=== PATIENT | male | born 1950 | race Caucasian/White ===

== ENCOUNTER → 2020-08-17 14:52 | Outpatient (CLI) | payer MEDICARE, OTHER, SELFPAY ==
--- NOTE | ~2020-08-17 | XR_ITS ---
XR lumbar spine min 4V DATE: 08/17/2020 15:21 INDICATION: Back pain TECHNIQUE: AP, lateral, bilateral oblique and coned lateral lumbosacral views COMPARISON: 11/25/2011 lumbar spine FINDINGS: There is a transitional lumbosacral (S1) vertebra with sacralization and pseudarthrosis on the right, lumbarization on the left. There is mild levoscoliosis of the lumbar spine. There is severe degenerative disc disease from L2-3 through L5-S1. There is degenerative change at the apophyseal joints but no spondylolisthesis. No fracture or bone destruction is evident. The lumbar pedicles are intact. The sacroiliac joints are normal. Status post left total hip arthroplasty. Plate and screws above roof of left acetabulum. Numerous faceted calcified gallstones. 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 IMPRESSION: Severe degenerative disc disease from L2-3 through L5-S1, considera antwan advanced since 11/25/2011 Transitional first sacral vertebra with sacralization pseudoarthrosis on the ri ght Status post left total hip arthroplasty Plate and screws above roof of acetabulum
--- NOTE | ~2020-08-17 | XR_ITS ---
XR thoracic spine 3V DATE: 08/17/2020 15:21 INDICATION: Back pain TECHNIQUE: AP, lateral, swimmer views COMPARISON: None FINDINGS: There is anterior surgical fusion at C5-6. There is prominent degenerative disc disease at C4-5 and C6-7. There is degenerative spurring of the thoracic spine. No fracture or bone destruction is evident. The thoracic pedicles are intact. No paraspinal soft tissue thickening. Diffuse osteopenia. Numerous faceted calcified gallstones. Old pulmonary granulomatous disease including calcified hilar and subcarinal nodes. IMPRESSION: Status post anterior cervical spine fusion at C5-6 Prominent degenerative disease at C4-5 and C6-7 Degenerative spurring of the thoracic spine Osteopenia Cholelithiasis Reviewed, dictated and finalized at location A.
== END ==
PROVIDERS: PCP Family Medicine; Visit Provider Family Medicine
DX: T14.90XA Injury, unspecified, initial encounter (principal); M51.36 Other intervertebral disc degeneration, lumbar region; Z98.1 Arthrodesis status; M50.321 Other cervical disc degeneration at C4-C5 level; M50.323 Other cervical disc degeneration at C6-C7 level
CPT/HCPCS: 72072; 72110

== ENCOUNTER 2020-12-17 10:02 | Outpatient (CLI) | payer MEDICARE, OTHER, SELFPAY ==
--- NOTE | 2020-12-17 10:15 | ECG_ITS ---
Measurements Intervals [place] Rate: 56 P: 42 FL: 150 QRS: 54 QRSD: 92 T: 10 QT: 398 QTc: 385 Interpretive Statements SINUS BRADYCARDIA WITH SINUS ARRHYTHMIA BORDERLINE T WAVE ABNORMALITY- INFERIOR LEADS BORDERLINE ECG Electronically Signed On 12-17-2020 11:29:26 CDT by Donny Jules D.O.
== END 2020-12-17 10:03 | disposition home or self-care (01) ==
PROVIDERS: PCP Family Medicine; Visit Provider Family Medicine
DX: I10 Essential (primary) hypertension (principal); R94.31 Abnormal electrocardiogram [ECG] [EKG]
CPT/HCPCS: 93005

== ENCOUNTER → 2020-12-27 13:41 | Outpatient (CLI) | payer MEDICARE, OTHER, SELFPAY ==
--- NOTE | ~2020-12-27 | US_ITS ---
EXAMINATION: US renal BI DATE: 12/27/2020 14:00 INDICATION: Disorder of kidney and ureter, unspecified. TECHNIQUE: Multiple ultrasound grayscale images of the kidneys were obtained. COMPARISON: Ultrasound 02/22/2014 FINDINGS: The right kidney measures 9.8 x 5.4 x 4.8 cm. The left kidney measures 10.2 x 5.3 x 5.4 cm. The kidne ys demonstrate normal parenchymal echogenicity. There is a 1.8 cm hypoechoic mass in right kidney. Th ere is a 5.7 cm cyst in left kidney. There is a 2.0 cm mass in left kidney that is at least partially cystic. There is no hydronephrosis. The bladder is not well distended. IMPRESSION: 1. Normal kidney sizes. No hydronephrosis. 2. Bilateral kidney masses, which may be benign cysts or less likely neoplasms. Abdomen CT without an d with contrast is recommended. Reviewed, dictated and finalized at location A. IMPRESSION: 1. Normal kidney sizes. No hydronephrosis. 2. Bilateral kidney masses, which may be benign cysts or less likely neoplasms. Abdomen CT without and with contrast is recommended.
== END ==
PROVIDERS: PCP Family Medicine; Visit Provider Family Medicine
DX: N28.9 Disorder of kidney and ureter, unspecified (principal)
CPT/HCPCS: 76775

== ENCOUNTER 2021-01-04 12:22 | Outpatient (CLI) | payer MEDICARE, OTHER, SELFPAY ==
--- NOTE | ~2021-01-04 | CT_ITS ---
EXAMINATION: CT abdomen wo/w con DATE: 01/04/2021 13:03 INDICATION: Bilateral kidney masses. TECHNIQUE: Computed tomography (CT) of the abdomen was performed without and with 100 mL Omnipaque 35 0 intravenous contrast. Automated exposure control and iterative reconstruction technique were employ ed. The dose-length product was 826.81 mGy-cm. COMPARISON: Ultrasound 12/27/2020 FINDINGS: The visualized portions of the lung bases demonstrate mild atelectasis. A calcified left juany ng nodule and calcified paraesophageal lymph node are consistent with old granulomatous disease. No p leural effusion. The heart size is normal. There are coronary artery calcifications. No pericardial e ffusion. The liver is normal. There are gallstones in the gallbladder, which is normal in size. Calci fications in the spleen are consistent with old granulomatous disease. The pancreas and adrenal gland s are normal. There are simple cysts in the kidneys measuring up to 6.1 cm on the left. There is a 12 mm hemorrhagic cyst in right kidney. There are no dilated loops of bowel. The appendix is normal. Th ere are no pathologically enlarged lymph nodes. There is no free intraperitoneal fluid. There is tawanda re thoracic and lumbar spondylosis. There is a chronic compression fracture of L1. Lumbar levoscolios is is noted. IMPRESSION: 1. Benign cysts in the kidneys. Reviewed, dictated and finalized at location A.
== END 2021-01-04 12:23 | disposition home or self-care (01) ==
LOC: ANHIMG 12:25
PROVIDERS: PCP Family Medicine; Visit Provider Family Medicine
DX: N28.89 Other specified disorders of kidney and ureter (principal); N28.1 Cyst of kidney, acquired
CPT/HCPCS: 74170; Q9967

== ENCOUNTER → 2022-02-17 12:34 | Outpatient (CLI) | payer MEDICARE, SELFPAY ==
--- NOTE | ~2022-02-17 | XR_ITS ---
EXAM: XR wrist LT min 3V, XR forearm LT 2V DATE: 02/17/2022 12:47 HISTORY: M25.539 - Pain in unspecified wrist . COMPARISON: None available. FINDINGS: Screw and plate fixation of the distal left ulna, without hardware-related complication. No rmal mineralization. No fracture or dislocation. No lytic or blastic lesion. Scattered degenerative c hange in the joints of the wrist, moderate at the triscaphe joint. No erosion or periosteal change. S oft tissues within normal limits. IMPRESSION: No acute osseous finding in the left wrist or forearm.. Reviewed, dictated and finalized at location K. OR UI UX DESIGNER IMPRESSION: No acute osseous finding in the left wrist or forearm..
== END ==
PROVIDERS: PCP Family Medicine; Visit Provider Physician Assistant Medical
DX: M79.632 Pain in left forearm (principal); M25.539 Pain in unspecified wrist
CPT/HCPCS: 73090; 73110

== ENCOUNTER → 2022-09-09 09:31 | Outpatient (CLI) | payer MEDICARE, SELFPAY ==
--- NOTE | ~2022-09-09 | XR_ITS ---
AP view of the pelvis and AP and lateral views of the left hip Clinical history: Pain Findings: No acute fracture or dislocation is seen. There is left hip arthroplasty hardware present, with additional hardware at the left supra-acetabular region. There is mild heterotopic ossification at the left hip. Right hip joint space is preserved. Soft tissues are unremarkable. Impression: No acute abnormality evident. Left hip arthroplasty with additional left supra-acetabular hardware. Mild heterotopic ossification. Reviewed, dictated and finalized at location . Impression: No acute abnormality evident. Left hip arthroplasty with additional left supra-acetabular hardware. Mild hete rotopic ossification.
== END ==
PROVIDERS: PCP Family Medicine; Visit Provider Physician Assistant
DX: M25.552 Pain in left hip (principal)
CPT/HCPCS: 73502

== ENCOUNTER 2024-06-08 11:25 | Outpatient (CLI) | payer MEDICARE, SELFPAY ==
--- NOTE | ~2024-06-08 | XR_ITS ---
XR_[id number]_CR Ordering provider: Ivelisse Kathleen PA-C History: . M54.2 - Cervicalgia . Comparison: None. FINDINGS: VERTEBRAL BODIES: Normal height and alignment. No visible fracture or subluxation. The dens is intact . Postoperative changes at the level of C5-C6. DISK SPACES: Narrowing of the disc C4-C5, C5-C6 and C6-C7. Multilevel facet joint disease. Multilevel uncovertebral joint osteoarthritic changes. PARASPINOUS SOFT TISSUES: No prevertebral soft tissue swelling. IMPRESSION: No acute osseous abnormality cervical spine. Multilevel degenerative disc disease. Reviewed, dictated and finalized at location A.
--- NOTE | ~2024-06-08 | XR_ITS ---
3 VIEWS THORACIC SPINE Ordering provider: Ivelisse Kathleen PA-C History: . M54.2 - Cervicalgia; CHRONIC NECK AND BACK PAIN . Comparison: None. FINDINGS: VERTEBRAL BODIES: Normal height and alignment. No visible fracture or subluxation. Degenerative johnson es of the spine. Postoperative changes in the lower cervical area. DISK SPACES: Multilevel degenerative disc disease in the upper, mid and lower thoracic area. SOFT TISSUES: Normal. Cholelithiasis. IMPRESSION: No acute osseous abnormality of the thoracic spine. Multilevel degenerative disc disease. Cholelithiasis. Reviewed, dictated and finalized at location A.
== END 2024-06-08 11:26 | disposition home or self-care (01) ==
LOC: MICIMG 11:27
PROVIDERS: PCP Family Medicine; Visit Provider Student in an Organized Health Care Education/Training Program
DX: M50.30 Other cervical disc degeneration, unspecified cervical region (principal); K80.20 Calculus of gallbladder without cholecystitis without obstruction; M51.34 Other intervertebral disc degeneration, thoracic region
CPT/HCPCS: 72040; 72070

== ENCOUNTER 2024-07-29 09:15 | Outpatient (RCR) | payer MEDICARE, SELFPAY ==
--- NOTE | 2024-07-04 11:01 | OPREHPOC ---
Outpatient Therapy Plan of Care This is a Multidisciplinary Plan of Care that may contain components documented by all disciplines (PT, OT, and ST.) PT Problem 1 PT Problem #1 Knowledge Deficit PT Goal 1 Goal / Goal Update *independent with HEP Target Visit 8 PT Problem 2 PT Problem #2 Impaired Flexibility PT Goal 1 Goal / Goal Update *increase cervical rotation, to improve driving, home and self care activities: 1* rotation R 65' 2* rotation L 70' 3* no pain increase with cervical rotation to R 4* no pain increase with L shoulder IR motion Target Visit 8 PT Problem 3 PT Problem #3 Impaired Strength PT Goal 1 Goal / Goal Update * increase strength of cervical-thoracic complex to 4+/5, to improve position and posture of shoulder Target Visit 8
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
--- NOTE | 2024-08-12 13:15 | PTOPDC ---
Assessment and note entered by Rick Elam, PT Evaluation Information Assessment Status Discharge - Pt Not Present ICD-10 Condition Codes (PT) Cervicalgia M54.2,Pain in Thoracic Spine M54.6 Onset May 2024 Subjective Information Patient was contacted requesting to change his appointment due to an ill clinician. Patient reported that he was doing well overall and denied any recurring symptoms. Reports that if it okay with therapist he would like to be discharged. Assessment PT Clinical Summary Patient to be discharged at this time per patient request. Patient reports meeting all personal therapy goals at this time. Plan of Care PT Services Indicated Yes
== END 2024-08-12 13:57 | disposition home or self-care (01) ==
LOC: ANHGOSHPT 09:15
PROVIDERS: PCP Family Medicine; Visit Provider Student in an Organized Health Care Education/Training Program
DX: M50.30 Other cervical disc degeneration, unspecified cervical region (principal); M51.34 Other intervertebral disc degeneration, thoracic region
CPT/HCPCS: 97014; 97110; 97140; 97161; G0283

== ENCOUNTER 2024-09-30 13:11 | Outpatient (CLI) | payer MEDICARE, SELFPAY ==
--- NOTE | ~2024-09-30 | MR_ITS ---
MRI of the cervical spine Clinical History: Cervicalgia Technique: Axial T2-weighted and gradient images, and sagittal T1-weighted, T2-weighted, and STIR osmar ges were acquired. Findings: No acute fracture identified. There is minimal grade 1 retrolisthesis of C4-C5. There is an terior fusion from C5 to C6. No suspicious bone marrow signal abnormality seen. At C2-C3, there is disc osteophyte complex and bilateral facet arthropathy. There is right neural for aminal narrowing. Left neural foramen preserved. No canal stenosis or cord compression. At C3-C4, there is disc osteophyte complex with moderate canal stenosis and associated cord compressi on. There is bilateral facet arthropathy with advanced bilateral neural foraminal narrowing. At C4-C5, there is advanced degenerative disc narrowing. There is disc osteophyte complex with mild c anal stenosis but no volodymyr cord compression. There is bilateral mild neural foraminal narrowing. At C5-C6, there is no disc bulge or herniation. No spinal canal stenosis or cord compression. There i s bilateral neural foraminal narrowing, right worse than left. At C6-C7, there is advanced degenerative disc narrowing. No significant disc bulge or herniation. No spinal canal stenosis or cord compression. There is bilateral neural foraminal narrowing. Paravertebral soft tissues are unremarkable. No abnormal signal seen in the spinal cord. Impression: Severe spondylosis, at C3-C4 in particular, with canal stenosis and cord compression at this level. Multilevel neural foraminal narrowing otherwise, as detailed above. Anterior fusion from C5 to C6. Reviewed, dictated and finalized at [facility]. Impression: Severe spondylosis, at C3-C4 in particular, with canal stenosis and cord compre ssion at this level. Multilevel neural foraminal narrowing otherwise, as detailed above. Anterior fusion from C5 to C6.
--- NOTE | ~2024-09-30 | MR_ITS ---
MRI of the thoracic spine Clinical History: Cervicalgia Technique: Axial T2-weighted and gradient images, and sagittal T1-weighted, T2-weighted, and STIR osmar ges were acquired. Findings: There is no fracture or subluxation of the thoracic spine. Vertebral bodies maintain normal height and alignment. There is multilevel moderate degenerative disc narrowing, most notably from T4 -T11. No suspicious bone marrow signal abnormality seen. No significant disc bulge or herniation seen at any thoracic level. No spinal canal stenosis or cord compression evident. There is advanced bilateral neural foraminal narrowing at T10-T11 and T11-T12. No abnormal signal seen in the spinal cord. Paravertebral soft tissues are unremarkable. Impression: Degenerative spondylosis, as detailed above. Reviewed, dictated and finalized at location . Impression: Degenerative spondylosis, as detailed above.
== END 2024-09-30 13:12 | disposition home or self-care (01) ==
LOC: GOSHIMG 13:11
PROVIDERS: PCP Family Medicine; Visit Provider Student in an Organized Health Care Education/Training Program
DX: M47.815 Spondylosis without myelopathy or radiculopathy, thoracolumbar region (principal); M47.812 Spondylosis without myelopathy or radiculopathy, cervical region; M48.02 Spinal stenosis, cervical region; G95.20 Unspecified cord compression; Z98.1 Arthrodesis status
CPT/HCPCS: 72141; 72146

== ENCOUNTER 2024-10-27 09:55 | Outpatient (CLI) | payer MEDICARE, SELFPAY ==
--- NOTE | ~2024-10-27 | XR_ITS ---
EXAMINATION:XR cervical spine 4-5V DATE: 10/27/2024 10:09 INDICATION: Radiculopathy. Cervical region. TECHNIQUE: 5 images of the cervical spine were obtained COMPARISON: 06/08/2024 FINDINGS: Anterior spinal fusion of C5 and C6 without radiographic evidence for loosening of the hardware, unch anged. Severe joint space narrowing at the C4-C5 level with grade 1 retrolisthesis of C4 on C5, unchanged. G rade 1 anterolisthesis of C4 on C5 slightly improves with flexion and is unchanged with extension. Severe joint space narrowing at the C6-C7 level with anterior osteophytosis, unchanged. No compression fracture in the cervical spine. Degenerative change scattered throughout the cervical facet joints and uncovertebral joints similar t o the prior study. Predental space is within normal limits. No prevertebral soft tissue swelling. Lateral dental interva ls are within normal limits. IMPRESSION: 1. Anterior spinal fusion of C5 and C6 without radiographic evidence for loosening of the hardware, u nchanged. 2. Overall, grossly stable exam as compared to the study from 06/08/2024. If symptoms persist or worsen, consider an MRI of the cervical spine for further assessment. Reviewed, dictated and finalized at location A. IMPRESSION: 1. Anterior spinal fusion of C5 and C6 without radiographic evidence for loosen ing of the hardware, unchanged. 2. Overall, grossly stable exam as compared to the study from 06/08/2024. If symptoms persist or worsen, consider an MRI of the cervical spine for furthe r assessment.
== END 2024-10-27 09:56 | disposition home or self-care (01) ==
LOC: GOSHIMG 09:55
PROVIDERS: PCP Neurological Surgery; Visit Provider Neurological Surgery
DX: M54.12 Radiculopathy, cervical region (principal); Z98.1 Arthrodesis status
CPT/HCPCS: 72050

== ENCOUNTER 2024-11-17 09:00 | Outpatient (RCR) | payer MEDICARE, SELFPAY ==
--- NOTE | 2024-10-27 10:37 | OPREHPOC ---
Outpatient Therapy Plan of Care This is a Multidisciplinary Plan of Care that may contain components documented by all disciplines (PT, OT, and ST.) PT Problem 1 PT Problem #1 Knowledge Deficit PT Goal 1 Goal / Goal Update 1. Patient to demonstrate independence with HEP for improved self-reliance of symptom management. Target Visit 4 PT Goal 1 Goal / Goal Update 1. Patient to decrease subjective reports of pain to <3/10 for improved ADL tolerance. 2. Patient to report an improvement in radiating symptoms by 50% to increase ability to perform ADLs. Target Visit 8 PT Problem 3 PT Problem #3 Impaired Functional Mobility PT Goal 1 Goal / Goal Update 1. Pt will report ability to perform yard work for 1 consecutive week without increasing RUE radicular symptoms. 2. Pt will return to daily exercise routine without increasing RUE radicular symptoms. 3. The patient will have a 10 point improvement on the NDI for decreased handicap due to neck pain. Target Visit 8 PT Problem 4 PT Problem #4 Impaired Range of Motion PT Goal 1 Goal / Goal Update 1. Patient to demonstrate an increase of cervical extension and rotation AROM with minimal c/o pain and RUE radicular pain. Target Visit 8
--- NOTE | 2024-10-27 10:37 | PTOPEVAL1 ---
Assessment and note entered by Marc Byrd PT Evaluation Information Assessment Status Evaluation Diagnosis Cervical radiculopathy to RUE ICD-10 Condition Codes (PT) Cervicalgia M54.2,Pain in Thoracic Spine M54.6, Radiculopathy, cervical M54.13 Subjective Information Pt presents for physical therapy evaluation for neck pain and numbness in his right arm. He notably has a history of a previous ACDF at C5-C6 many years ago and notes his current issue started a few months ago where pain developed on his L side of neck and radiating into his L shoulder. Pt states that pain started to clear up with physical therapy but then the R arm started to develop intense down his R arm with numbness and tingling present. Mri was performed showing stenosis, disc buldges and minor cord compression. Pt states he is primarily limited by pain limiting his ability to perform his homemaking and yard work duties. Pt would like to return to PLOF and recreation activities with less pain and numbness tingling. Reported Pain Level Pain Score 2,2: Self Report Assessment PT Clinical Summary Patient presents to physical therapy with a primary issue of Neck pain and RUE radicular symptoms for the last few months. MRI displays Severe spondylosis, at C3-C4 in particular, with canal stenosis and cord compression at this level. Multilevel neural foraminal narrowing. Patient demonstrates increased pain, decreased cervical mobility, abnormal posture, and decreased flexibility that limit their ability to perform activities of daily living and functional movements. Patient will benefit from skilled physical therapy to address the above listed deficits and return to prior level of function. Home exercise program instructed and written handout provided, exercises tolerated well with no adverse effects to note post-session. Patient was educated on importance of adherence to home exercise program. Patient was also educated on anatomy, prognosis, home modalities, and plan of care Plan of Care Interventions Electrical Stimulation,Hot Pack/Cold Pack,Manual Therapy,Neuro Re-education,Therapeutic Activities, Therapeutic Exercise,Other PT Services Indicated Yes Treatment Frequency and 2x week 8 visits Duration These treatments will address the objective and functional deficits as defined above. The patient will be advanced safely and appropriately in order for the patient to progress towards his/her prior level of function. Additional exercises will be introduced and as well as a comprehensive home exercise program upon discharge, if needed, ?to ensure carryover of functional gains achieved in the clinic. This treatment plan has been reviewed and agreement upon by the patient.
--- NOTE | 2024-11-17 09:34 | PTOPDC ---
Assessment and note entered by Marc Byrd PT Evaluation Information Assessment Status Discharge Diagnosis Cervical radiculopathy to RUE ICD-10 Condition Codes (PT) Cervicalgia M54.2,Pain in Thoracic Spine M54.6, Radiculopathy, cervical M54.13 Subjective Information Pt states he feels about 80% recovered overall. He still has minor twinges of pain and morning stiffness. Pt notes he has only had 1 episode of numbness and tingling which was resolved by changing position. Pt states he has returned to his normal exercise routine and does not feel limited with any of his yard work or hobbies. Pt states he plans to continue exercise routine to maintain his mobility and strength. Reported Pain Level Pain Score 0: Self Report Assessment PT Clinical Summary Patient's neck and R arm numbness and tingling has improved overall as evidenced by decreased symptoms and increased mobility, strength, and overall functional use of the extremity. Patient has met therapy goals and has returned to all prior activities he was limited with. Patient to discharge from physical therapy this date and continue with updated home exercise program as instructed. Patient to contact physical therapist or primary care provider if questions or concerns arise. Plan of Care PT Services Indicated No
== END 2024-11-17 15:37 | disposition home or self-care (01) ==
LOC: ANHGOSHPT 09:00
PROVIDERS: PCP Family Medicine; Visit Provider Neurological Surgery
DX: M54.12 Radiculopathy, cervical region (principal)
CPT/HCPCS: 97110; 97112; 97140; 97161